=== PATIENT | female | born 1960 ===

== ENCOUNTER 2017-01-03 23:47 | Emergency (ER) | payer MEDICAID ==
[2017-01-04] VITALS: RESP 20; O2SAT 100
[2017-01-04 01:13] LABS: BASO % 0.4 % (0.0-2.0); EOS # 0.2 K/uL (0.0-0.7); EOS % 1.5 % (0.0-4.0); HEMATOCRIT 40.3 % (34.0-47.0); LYMPH # 1.7 K/uL (1.0-4.3); LYMPH % 15.8 % (20.0-40.0); MEAN CELL VOLUME 89.6 fL (81.0-99.0); MEAN CORPUSCULAR HEMOGLOBIN 28.5 pg (27.0-31.0); MEAN CORPUSCULAR HGB CONC 31.7 g/dL (33.0-37.0); MEAN PLATELET VOLUME 9.3 fL (7.2-11.7); MONO # 0.5 K/uL (0.0-0.8); RED CELL DISTRIBUTION WIDTH 13.2 % (11.5-14.5); WHITE BLOOD COUNT 10.5 K/uL (4.8-10.8)
[2017-01-04 01:19] LABS: CHLORIDE 106 mmol/L (98-107); POTASSIUM 4.4 mmol/L (3.6-5.2); SODIUM 138 mmol/L (132-148)
[2017-01-04 01:21] LABS: BILIRUBIN,TOTAL 0.5 mg/dL (0.2-1.3); CARBON DIOXIDE 23 mmol/L (22-30); GFR AFRICAN-AMERICAN > 60
[2017-01-04 01:22] LABS: ALB/GLOB RATIO 1.4 (1.0-2.1); ALKALINE PHOSPHATASE 68 U/L (38-126); ALT/SGPT 21 U/L (9-52); AST/SGOT 27 U/L (14-36); BLOOD UREA NITROGEN 17 mg/dL (7-17); CALCIUM 8.2 mg/dl (8.6-10.4); GLUCOSE,RANDOM 102 mg/dL (65-105); TOTAL PROTEIN 6.3 g/dL (6.3-8.3)
[2017-01-04 01:40] LABS: RBC URINE 2 /hpf (0-3); URINE BACTERIA RARE (<OCC); URINE BILIRUBIN NEGATIVE (NEGATIVE); URINE BLOOD NEGATIVE (NEGATIVE); URINE COLOR Yellow (YELLOW); URINE GLUCOSE (UA) NORMAL (Normal); URINE KETONE NEGATIVE (NEGATIVE); URINE LEUKOCYTE ESTERASE 1+ Leu/uL (Negative); URINE PROTEIN NEGATIVE (NEGATIVE); URINE UROBILINOGEN NORMAL mg/dL (0.2-1.0); WBC URINE 11 /hpf (0-5)
--- NOTE | 2017-01-04 02:58 | C.PDOC ---
History Of Present Illness A 56 y/o female c/o abdominal pain and vomiting that began tonight. Pt reports constipation for 3 days but denies fever, chills, UTI symptoms, sick contact, travel, vaginal bleeding or discharge, hematuria, dysuria, or any other complaints. Pt now states that pain subsided but notes only minimal nausea. Time Seen by Provider: 01/04/17 01:30 Chief Complaint (Nursing): Abdominal Pain History Per: Patient History/Exam Limitations: no limitations Onset/Duration Of Symptoms: Days Current Symptoms Are (Timing): Still Present Severity: Mild Location Of Pain/Discomfort: Diffuse Associated Symptoms: Vomiting. denies: Fever, Chills Recent travel outside of the [place]: No Additional History Per: Patient Abnormal Vaginal Bleeding: No Past Medical History Reviewed: Historical Data, Nursing Documentation, Vital Signs Vital Signs: Last Vital Signs Temp 97.7 F 01/04/17 04:46 Pulse 60 01/04/17 04:46 Resp 20 01/04/17 04:46 BP 109/65 01/04/17 04:46 Pulse Ox 100 01/04/17 04:53 - Medical History PMH: Hypercholesterolemia Family History: States: Unknown Family Hx - Social History Hx Alcohol Use: No Hx Substance Use: No - Immunization History Hx Tetanus Toxoid Vaccination: No Hx Influenza Vaccination: No Review Of Systems Constitutional: Negative for: Fever, Chills Gastrointestinal: Positive for: Vomiting, Abdominal Pain, Constipation Genitourinary: Negative for: Dysuria, Hematuria, Vaginal Discharge, Vaginal Bleeding Physical Exam - Physical Exam Appears: Non-toxic, No Acute Distress Skin: Warm, Dry Head: Atraumatic, Normacephalic Eye(s): bilateral: Normal Inspection, EOMI Oral Mucosa: Moist Chest: Symmetrical Cardiovascular: Rhythm Regular, No Murmur Respiratory: Normal Breath Sounds, No Accessory Muscle Use, No Wheezing Gastrointestinal/Abdominal: Soft, No Tenderness, No Distention, No Guarding, No Rebound, No Hernia Rectal: Deferred Back: Normal Inspection, No CVA Tenderness Neurological/Psych: Oriented x3, Normal Speech, Normal Cognition Gait: Steady ED Course And Treatment - Laboratory Results Result Diagrams: 01/04/17 01:10 01/04/17 01:10 O2 Sat by Pulse Oximetry: 100 (RA) Pulse Ox Interpretation: Normal - Other Rad Abdomen XR X-Ray: Interpreted by Me, Viewed By Me Interpretation: Moderate stools Progress Note: Impression: 56 y/o female c/o abdominal pain and vomiting that began tonight. Plans: Obstructive series, Zofran, reassess. Patient is resting comfortably, abdomen remains soft,non tender and patient is tolerating PO. Patient feels comfortable going home. Patient will be discharged home and is advised to follow up with PMD if symptoms persist. Reevaluation Time: 04:50 Reassessment Condition: Improved Disposition - Disposition Referrals: [facility] [Outside] [facility] [Outside] Disposition: HOME/ ROUTINE Disposition Time: 04:50 Condition: STABLE Additional Instructions: High fiber diet Increase PO fluids Follow up with PMD Return to ER if worse Prescriptions: Magnesium Citrate [[place] Citroma] 1.75 gm PO ONCE #1 bottle Polyethylene Glycol 3350 [Miralax] 17 gm PO DAILY #1 bottle Instructions: Constipation (ED), High Fiber Diet (ED) Print Language: GEORGIAN - Clinical Impression Clinical Impression: Abdominal pain, Vomiting, Constipation - Scribe Statement The provider has reviewed the documentation as recorded by the Shawnibraúl stevens All medical record entries made by the Shawnibraúl were at my direction and personally dictated by me. I have reviewed the chart and agree that the record accurately reflects my personal performance of the history, physical exam, medical decision making, and the department course for this patient. I have also personally directed, reviewed, and agree with the discharge instructions and disposition.
[2017-01-04 04:47] VITALS: BP 109/65; PULSE 60; TEMP 97.7
[2017-01-04] MEDS ORDERED: Magnesium Citrate Oral SOL (300 ml) PO ONE (05:20)
[2017-01-04] MEDS ORDERED: Magnesium Citrate Oral SOL (300 ml) ONE (05:23)
--- NOTE | 2017-01-04 10:41 | RAD ---
PROCEDURE: Radiographs of the chest and abdomen (obstructive series) HISTORY: Abdominal Pain, constipation COMPARISON: No prior. TECHNIQUE: AP radiograph of the chest, with upright and supine radiographs of the abdomen. FINDINGS: CHEST: Cardiomediastinal silhouette normal in size and position. . The interstitial markings are increased and coarsened with a few scattered peribronchial cuffing changes. Findings may represent sequela of reactive/ inflammatory airway disease or viral illness. Note is made of a small approximately 3.6 mm nodular density right lateral upper/mid lung field overlying the right anterior posterior 6 rib. This could represent a vessel on end artifact small granuloma or parenchymal nodule. Follow-up nonemergent CT scan of the chest could be performed to assess for other pathology including the parenchymal nodule or mass. ABDOMEN AND PELVIS: No evidence of free intraperitoneal air seen under the diaphragmatic surfaces. No evidence of acute mechanical bowel obstruction however note is made of a large amount of stool within the distal transverse as well as the descending and to a lesser degree sigmoid colon consistent with constipation. IMPRESSION: No acute infiltrates. . The interstitial markings are increased and coarsened with a few scattered peribronchial cuffing changes. Findings may represent sequela of reactive/ inflammatory airway disease or viral illness. Small nodular density right lateral, upper/ mid lung field could represent vessel on end artifact however small parenchymal nodule or granuloma not excluded. Follow-up nonemergent CT scan of the chest recommended. These findings were discussed with emergency room physician assistant Hoover at approximately 10:38 a.m. with written down and read back verification. Case also placed PA review folder followup. Findings also consistent with constipation.
--- NOTE | 2017-01-05 23:24 | CARD ---
APPROVED REPORT EKG Measurement Heart [id number] <Conclusion> Sinus bradycardia Otherwise normal ECG
== END 2017-01-04 05:35 | disposition home or self-care (01) ==
LOC: C.ER 23:47
DX: K59.00 Constipation, unspecified (principal)
CPT/HCPCS: 74022; 80053; 81001; 83690; 85025; 93005; 96374; 99284; J2405